=== PATIENT | male | born 1955 | race Caucasian/White ===

== ENCOUNTER 2016-11-26 06:11 | Emergency (ER) | payer OTHER ==
[2016-11-26 06:35] VITALS: BP 128/66
[2016-11-26] MEDS ORDERED: cefTRIAXone 1,000 MG VIAL IM ONE (06:50)
--- NOTE | 2016-11-26 06:50 | EDM.PDOC ---
ED HPI GENERAL MEDICAL PROBLEM - General Chief Complaint: Skin Complaint Stated Complaint: INFECTED RT HAND Time Seen by Provider: 11/26/16 06:30 Source of Information: Reports: Patient History Limitations: Reports: No Limitations - History of Present Illness INITIAL COMMENTS - FREE TEXT/NARRATIVE: c/o burn on dorsum of R hand pt is a cook at [employer], he got grease on the dorsum of his R hand 1w ago and sustained a burn today he noted that his R hand and forearm were more swollen than usual, no other sxs, no increase in pain, no f/c/d, full use of hand he thinks it may be infected hs is a diabetic, he does not know what his blood sugar runs - Related Data Allergies Allergy/AdvReac Type Severity Reaction Status Date / Time No Known Allergies Allergy Verified 11/26/16 06:35 Home Meds: Home Meds Amoxicillin/Clavulanate K [Augmentin 875 MG] 1 tab PO BID #14 tablet 11/26/16 [ Rx] ED ROS GENERAL - Review of Systems Review Of Systems: See Below Constitutional: Reports: No Symptoms HEENT: Reports: No Symptoms Respiratory: Reports: No Symptoms Cardiovascular: Reports: No Symptoms Endocrine: Reports: No Symptoms GI/Abdominal: Reports: No Symptoms : Reports: No Symptoms Musculoskeletal: Reports: No Symptoms Skin: Reports: Burn(s), Other (swell of hand and forearm) Neurological: Reports: No Symptoms Psychiatric: Reports: No Symptoms Hematologic/Lymphatic: Reports: No Symptoms Immunologic: Reports: No Symptoms ED EXAM, SKIN/RASH Exam: See Below Exam Limited By: No Limitations General Appearance: Alert, WD/WN, No Apparent Distress Ears: Normal External Exam, Normal Canal Nose: Normal Inspection, Normal Mucosa, No Blood Throat/Mouth: Normal Inspection, Normal Lips, Normal Voice, No Airway Compromise Head: Atraumatic, Normocephalic Neck: Normal Inspection, Supple, Non-Tender Respiratory/Chest: No Respiratory Distress, Lungs Clear Cardiovascular: Regular Rate, Rhythm Psychiatric: Normal Affect, Normal Mood Skin: Other (there is a 5 x 5 cm burn on dorsum R hand with epidermis missing over 40% of area, dry to touch, no d/c, there is mild swell of the hand to the MCP, no finger swell, there is mild swell of the R forearm, perhaps slight warmth of R forearm and hand, no red, no tender to firm palpation, full use of fingers and wrist without pain, no R epitrochlear LNs, no R axillary LNs) Lymphatic: No Adenopathy Course - Vital Signs Last Recorded V/S: Last Vital Signs Temp 36.6 C 11/26/16 06:15 Pulse 69 11/26/16 06:15 Resp 20 11/26/16 06:15 BP 128/66 11/26/16 06:15 Pulse Ox 96 11/26/16 06:15 - Orders/Labs/Meds Orders: Active Orders 24 hr Category Date Time Status BASIC METABOLIC PANEL,BMP [CHEM] Stat Lab 11/26/16 06:41 Ordered CBC WITH AUTO DIFF [HEME] Stat Lab 11/26/16 06:41 Ordered CRP [C-REACTIVE PROTEIN] [CHEM] Stat Lab 11/26/16 06:41 Ordered - Re-Assessments/Exams Free Text/Narrative Re-Assessment/Exam: 11/26/16 07:35 labs are neg for infection (WBC neg, no shift, CRP neg), however cannot exclude infection, pt reports he takes 3 different pills (metformin, glipizide, Actos) and a shot for his DM but does not check his BS, Dr Nayak is his PCP altho pt has not seen him Departure - Departure Time of Disposition: 07:37 Disposition: Home, Self-Care 01 Condition: Good Clinical Impression: Cellulitis of hand, right - Discharge Information Prescriptions: Amoxicillin/Clavulanate K [Augmentin 875 MG] 1 tab PO BID #14 tablet Instructions: Cellulitis, Adult Referrals: Rickey Shukla MD [Primary Care Provider] - Additional Instructions: You may have infection in your hand and forearm although it is not possible to know this with certainty. As a precaution, take the antibiotic Augmentin 875/125 mg 1 tab 2 times a day for 7 days. See your doctor tomorrow. No work until cleared by your doctor. Return to ED if you develop a fever, have increased pain or redness or swelling , or feel worse. Call your Physician or Return to Emergency Department if: * Your condition worsens in any way. * You develop fever greater than 100.4. * You have vomitting that does not stop with medications. * You have pain that is not controlled with medications. - My Orders Last 24 Hours: My Active Orders 11/26/16 06:41 BASIC METABOLIC PANEL,BMP [CHEM] Stat CBC WITH AUTO DIFF [HEME] Stat CRP [C-REACTIVE PROTEIN] [CHEM] Stat - Assessment/Plan Last 24 Hours: My Active Orders 11/26/16 06:41 BASIC METABOLIC PANEL,BMP [CHEM] Stat CBC WITH AUTO DIFF [HEME] Stat CRP [C-REACTIVE PROTEIN] [CHEM] Stat
== END 2016-11-26 07:45 | disposition home or self-care (01) ==
LOC: FB.ED 06:11
DX: L03.113 Cellulitis of right upper limb (principal); T23.261A Burn of second degree of back of right hand, initial encounter; T31.44 Burns involving 40-49% of body surface with 40-49% third degree burns; E11.9 Type 2 diabetes mellitus without complications; X19.XXXA Contact with other heat and hot substances, initial encounter
CPT/HCPCS: 36415; 80048; 85025; 86140; 96372; 99282; J0696

== ENCOUNTER 2020-12-24 10:57 | Emergency (ER) | payer MEDICAID, OTHER ==
[2020-12-24] MEDS ORDERED: cefTRIAXone 1 GM Vial IM ONE (12:01)
--- NOTE | 2020-12-24 12:01 | EDM.PDOC ---
ED HPI GENERAL MEDICAL PROBLEM - General Stated Complaint: L ANKLE INFECTION Time Seen by Provider: 12/24/20 11:20 Source of Information: Reports: Patient History Limitations: Reports: No Limitations - History of Present Illness INITIAL COMMENTS - FREE TEXT/NARRATIVE: pt c/o redness and pain at left leg that started 2 days ago , had the same thing a month ago that resolved with ABXs bt does not recall its name, pt denies any fever or chills or any other associated sx or concerns, he is diabetic and accue check here is 284 , pt tells me his last A1c is 7.7. - Related Data Allergies Allergy/AdvReac Type Severity Reaction Status Date / Time No Known Allergies Allergy Verified 12/24/20 11:42 Home Meds: Home Meds Amoxicillin/Clavulanate K [Augmentin 875 MG] 1 tab PO BID #14 tablet 11/26/16 [Rx] Past Medical History Cardiovascular History: Reports: High Cholesterol, Hypertension Endocrine/Metabolic History: Reports: Diabetes, Type II ED ROS GENERAL - Review of Systems Review Of Systems: See Below Constitutional: Reports: No Symptoms HEENT: Reports: No Symptoms Respiratory: Reports: No Symptoms Cardiovascular: Reports: No Symptoms GI/Abdominal: Reports: No Symptoms ED EXAM, GENERAL - Physical Exam Exam: See Below Exam Limited By: No Limitations Respiratory/Chest: No Respiratory Distress Cardiovascular: Normal Peripheral Pulses, Regular Rate, Rhythm Extremities: Other (there is induration, erythema/ 3 cm , and superficial ulceration 0.5 cm at its center at medical side just above left ankle, area felt warm to touch. ) Course - Vital Signs Text/Narrative:: pt has mild/ early cellulitis, was given 1 gm Rocephin here and started on Bactrim , he is to follow with PCP in 2-3 days for re-check. Last Recorded V/S: Last Vital Signs Temp 35.8 C L 12/24/20 10:57 Pulse 68 12/24/20 10:57 Resp 18 12/24/20 10:57 BP 153/61 H 12/24/20 10:57 Pulse Ox 97 12/24/20 10:57 Departure - Departure Time of Disposition: 12:01 Disposition: Home, Self-Care 01 Clinical Impression: Left leg cellulitis - Discharge Information Referrals: Rickey Shukla MD [Primary Care Provider] - Sepsis Event Note (ED) - Focused Exam Vital Signs: Vital Signs Temp Pulse Resp BP Pulse Ox 12/24/20 10:57 35.8 C L 68 18 153/61 H 97
[2020-12-24 12:46] VITALS: BP 155/90; PULSE 61
== END 2020-12-24 12:50 | disposition home or self-care (01) ==
LOC: FB.ED 10:57
DX: L03.116 Cellulitis of left lower limb (principal); E78.00 Pure hypercholesterolemia, unspecified; I10 Essential (primary) hypertension; E11.9 Type 2 diabetes mellitus without complications
CPT/HCPCS: 82947; 96372; 99284; J0696

== ENCOUNTER 2023-12-03 07:12 | Day surgery (SDC) | payer MEDICARE, OTHER ==
[2023-12-03] MEDS ORDERED: Midazolam 1 MG/ML 2 ML SDV IV ONE (07:13)
[2023-12-03] MEDS ORDERED: fentaNYL 100 MCG/2 ML SDV IV ONE (07:13)
[2023-12-03] MEDS ORDERED: Sodium Chloride 0.9% 10 ML Syringe FLUSH PRN (07:30)
[2023-12-03 08:17] LABS: GLUCOSE,POC 119 mg/dL (80-116)
[2023-12-03] MEDS: Lactated Ringers 1,000 ML IV SCH (08:20)
[2023-12-03] MEDS: acetaZOLAMIDE 500 MG Cap.ER PO ONE (09:54)
[2023-12-03 14:03] VITALS: BP 139/67; PULSE 45
== END 2023-12-03 10:09 | disposition home or self-care (01) ==
LOC: FB.SDS 07:12
PROVIDERS: ATTEND Ophthalmology
DX: E11.36 Type 2 diabetes mellitus with diabetic cataract (principal); H25.9 Unspecified age-related cataract; H40.1112 Primary open-angle glaucoma, right eye, moderate stage; E11.65 Type 2 diabetes mellitus with hyperglycemia; I10 Essential (primary) hypertension; E66.9 Obesity, unspecified; Z79.4 Long term (current) use of insulin; Z79.84 Long term (current) use of oral hypoglycemic drugs; Z79.899 Other long term (current) drug therapy; Z88.8 Allergy status to other drugs, medicaments and biological substances; Z87.891 Personal history of nicotine dependence; Z68.35 Body mass index [BMI] 35.0-35.9, adult
CPT/HCPCS: 00142; 82947; A9270-GY; C1783; J2250; J3010; J7120; V2632

== ENCOUNTER 2023-12-17 07:54 | Day surgery (SDC) | payer MEDICARE, OTHER ==
[2023-12-17] MEDS ORDERED: fentaNYL 100 MCG/2 ML SDV IV ONE (07:55)
[2023-12-17] MEDS ORDERED: Midazolam 1 MG/ML 2 ML SDV IV ONE (07:55)
[2023-12-17] MEDS ORDERED: Sodium Chloride 0.9% 10 ML Syringe FLUSH PRN (08:00)
[2023-12-17] MEDS: Lactated Ringers 1,000 ML IV PRN (08:25)
[2023-12-17] MEDS: acetaZOLAMIDE 500 MG Cap.ER PO ONE (10:40)
[2023-12-17 13:27] VITALS: BP 167/74; PULSE 49
== END 2023-12-17 11:00 | disposition home or self-care (01) ==
LOC: FB.SDS 07:54
PROVIDERS: ATTEND Ophthalmology
DX: E11.36 Type 2 diabetes mellitus with diabetic cataract (principal); H40.1122 Primary open-angle glaucoma, left eye, moderate stage; I10 Essential (primary) hypertension; E78.5 Hyperlipidemia, unspecified; Z87.891 Personal history of nicotine dependence; Z79.4 Long term (current) use of insulin; Z79.84 Long term (current) use of oral hypoglycemic drugs; Z79.899 Other long term (current) drug therapy
CPT/HCPCS: 00142; 82947; A9270-GY; C1783; J2250; J3010; J7120; V2632